=== PATIENT | male | born 1980 | race Caucasian/White ===

== ENCOUNTER 2021-07-27 01:32 | Emergency (ER) | payer MEDICAID ==
[~2021-07-27] VITALS: Ht 182.9 cm; Wt 77.3 kg
[2021-07-27 01:38] VITALS: BP 124/75
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
== END 2021-07-27 02:30 | disposition home or self-care (01) ==
LOC: ER 01:33
DX: R07.81 Pleurodynia (principal); R07.89 Other chest pain; Z59.00 Homelessness unspecified
CPT/HCPCS: 71046; 99283

== ENCOUNTER 2022-01-17 07:45 | Emergency (ER) | payer MEDICAID ==
[~2022-01-17] VITALS: Ht 182.9 cm; Wt 77.3 kg
[2022-01-17 07:50] VITALS: BP 128/78
[2022-01-17] MEDS ORDERED: sulfamethoxazole/trimethoprim DS (800/160mg) tablet PO ONE (08:30)
[2022-01-17] MEDS ORDERED: cephalexin 250mg capsule PO ONE (08:30)
[2022-01-17] MEDS ORDERED: CEPH-585 PO (08:32)
[2022-01-17] MEDS ORDERED: SULF1TAB45 PO (08:32)
== END 2022-01-17 08:39 | disposition home or self-care (01) ==
LOC: ER 07:45
DX: L03.115 Cellulitis of right lower limb (principal); L97.418 Non-pressure chronic ulcer of right heel and midfoot with other specified severity; Z59.00 Homelessness unspecified; Z79.2 Long term (current) use of antibiotics
CPT/HCPCS: 99283